=== PATIENT | female | born 1945 | race Caucasian/White ===

== ENCOUNTER 2019-09-26 11:51 | Emergency (ER) | payer MEDICARE, BC ==
--- NOTE | 2019-09-26 12:12 | ED ---
Dizziness - HPI Summary HPI Summary: 74 year old female presents to the ED by EMS with a chief complaint of vertigo MACARONI MAKER. Patient has had a history of vertigo in the past but this episode was much more intense. She had mild vertigo last night while in bed that went away quickly. Patient felt fine during breakfast this morning. After breakfast, she was doing yoga when she experienced severe vertigo which caused her to lie down , and she was unable to get up. Vertigo has not resolved. Patient reports front left headache and vomiting, as well as high blood pressure self-measured at 185 at its peak. Patient did not take any medications MACARONI MAKER. Hx of vasospasm on exertion and mild UT. No Hx DM. 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 She visited Dr. Elkins, Cardiology, 2 days ago for heart discomfort upon exertion. 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 Severity Initially: Severe Severity Currently: Severe Character: Dizzy Aggravating Factor(s): Exertion Alleviating Factor(s): Nothing Associated Signs And Symptoms: Positive: Vomiting, Inability to Walk - Allergies/Home Medications Allergies/Adverse Reactions: Allergies Allergy/AdvReac Type Severity Reaction Status Date / Time BROCCOLI AND MUSHROOMS Allergy SEVERE Uncoded 09/26/19 11:58 VOMITING ENVIRONMENTAL/SEASONAL Allergy HEADACHES, Uncoded 09/26/19 11:58 CONGESTION, WATERY EYES PMH/Surg Hx/FS Hx/Imm Hx Cardiovascular History: Reports: Hx Myocardial Infarction, Other Cardiovascular Problems/Disorders - "benign arrythmia" Respiratory History: Comment Only: Other Respiratory Problems/Disorders - recent virus GI History: Reports: Hx Gastroesophageal Reflux Disease - OCCASIONAL, Other GI Disorders - ISCHEMIC COLITIS 06/2012 Musculoskeletal History: Reports: Hx Arthritis Comment Only: Other Musculoskeletal History - OSTEOARTHRITIS LEFT ANKLE Sensory History: Reports: Hx Contacts or Glasses Denies: Hx Hearing Aid Opthamlomology History: Reports: Hx Contacts or Glasses Neurological History: Reports: Hx Migraine - Cancer History Hx Chemotherapy: No Hx Radiation Therapy: No - Surgical History Surgery Procedure, Year, and Place: 1988 LEFT BUNIONECTOMY, [facility] [place]. 1970, 1972 CSECTION, [facility] [place]. 2011 COLONOSCOPY, [facility] [place] Hx Anesthesia Reactions: No Infectious Disease History: No Infectious Disease History: Denies: Traveled Outside the [place] in Last 30 Days - Social History Alcohol Use: Daily Alcohol Amount: 1 beer Substance Use Type: Reports: None Smoking Status (MU): Never Smoked Tobacco Review of Systems Positive: Palpitations Positive: Vomiting Neurological: Negative - Dizziness Positive: Headache All Other Systems Reviewed And Are Negative: Yes Physical Exam - Summary Physical Exam Summary: Constitutional: Well-developed, Well-nourished, Alert. (-) Distressed Skin: Warm, Dry HENT: Normocephalic; Atraumatic Eyes: Conjunctiva normal. No nystagmus. Neck: Musculoskeletal ROM normal neck. (-) JVD, (-) Stridor, (-) Tracheal deviation Cardio: Rhythm regular, rate normal, Heart sounds normal; Intact distal pulses; The pedal pulses are 2+ and symmetric. Radial pulses are 2+ and symmetric. (-) Murmur Pulmonary/Chest wall: Effort normal. (-) Respiratory distress, (-) Wheezes, (-) Rales Abd: Soft. (-) Tenderness, (-) Distension, (-) Guarding, (-) Rebound Musculoskeletal: (-) Edema Lymph: (-) Cervical adenopathy Neuro: Alert, Oriented x3, Strength normal, Cranial nerves II-XII are grossly intact. (-) Dysmetria, (-) Nystagmus, (-) Ataxia by finger to nose testing, (-) Sensory deficit. Psych: Mood and affect Normal Triage Information Reviewed: Yes Vital Signs On Initial Exam: Initial Vitals Temp Pulse Resp BP Pulse Ox 97.5 F 79 19 185/118 97 09/26/19 11:52 09/26/19 11:52 09/26/19 11:52 09/26/19 11:52 09/26/19 11:52 Vital Signs Reviewed: Yes Procedures - Sedation Patient Received Moderate/Deep Sedation with Procedure: No Diagnostics - Vital Signs Vital Signs Temp Pulse Resp BP Pulse Ox 09/26/19 11:52 97.5 F 79 19 185/118 97 - Laboratory Result Diagrams: 09/26/19 12:24 09/26/19 12:24 Lab Statement: Any lab studies that have been ordered have been reviewed, and results considered in the medical decision making process. - CT Brain CT CT Interpretation Completed By: Radiologist Summary of CT Findings: BRAIN CT IMPRESSION: NO EVIDENCE FOR GROSS ACUTE INFARCT, MASS EFFECT OR HEMORRHAGE. An ED physician has reviewed this report. - EKG No standard instances Cardiac Rate: NL EKG Rhythm: Sinus Rhythm ST Segment: Non-Specific : Normal Ectopy: None Summary of EKG Findings: An ED physician has reviewed and interpreted this EKG. Dizzy Course/Dx - Course Course Of Treatment: 74 year old female presents to the ED by EMS with a chief complaint of vertigo MACARONI MAKER. Patient has had a history of vertigo in the past but this episode was much more intense. She had mild vertigo last night while in bed that went away quickly. Patient felt fine during breakfast this morning. After breakfast, she was doing yoga when she experienced severe vertigo which caused her to lie down, and she was unable to get up. Vertigo has not resolved. Patient reports front left headache and vomiting, as well as high blood pressure self-measured at 185 at its peak. Patient did not take any medications MACARONI MAKER. Hx of vasospasm on exertion and mild UT. No Hx DM. 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 She visited Dr. Elkins, Cardiology, 2 days ago for heart discomfort upon exertion. Normal exam, no nystagmus. BRAIN CT IMPRESSION: NO EVIDENCE FOR GROSS ACUTE INFARCT, MASS EFFECT OR HEMORRHAGE. Normal sinus rhythm on EKG. Lab results show a BUN/creatinine ratio of 21.8. During ED course patient was given diazepam, ketorolac, meclizine, ondansetron, and fluids. Diagnosis is gastroenteritis. Patient is feeling better and will be discharged home, follow up with PCP within 3 days. Patient was told to return to the ED for new or worsened symptoms. Pt understands and agrees with this plan. - Diagnoses Provider Diagnoses: Vertigo Discharge ED - Sign-Out/Discharge Documenting (check all that apply): Patient Departure - discharge - Discharge Plan Condition: Stable Disposition: HOME Patient Education Materials: Vertigo (ED) Referrals: Micah Tillman MD [Primary Care Provider] - Additional Instructions: Follow up with your primary care provider within 3 days. Return to the Emergency Department if symptoms change or worsen. - Attestation Statements Document Initiated by Scribe: Yes Documenting Scribe: Martin Clark Provider For Whom Scribe is Documenting (Include Credential): Zeke Mota, Scribe Attestation: Martin Evans, scribed for Zeke Mota, DO on 09/26/19 at 1538. Status of Scribe Document: Ready
[2019-09-26] MEDS ORDERED: Meclizine TAB* 12.5 MG PO ONE (12:18)
[2019-09-26] MEDS ORDERED: NS 0.9% 500 ML* 500 ML IV ONE (12:18)
[2019-09-26 12:33] LABS: ABS Basophils 0.1 10^3/ul (0-0.2); ABS Eosinophils 0.1 10^3/ul (0-0.6); ABS Lymphocytes 1.1 10^3/ul (1.0-4.8); ABS Monocytes 0.5 10^3/ul (0-0.8); ABS Neutrophils 6.1 10^3/ul (1.5-7.7); Eosinophil % 1.3 %; Hematocrit 42 % (35-47); Hemoglobin 14.3 g/dL (12.0-16.0); Lymphocyte % 13.6 %; Mean Corpuscular HGB Conc 34 g/dL (31-36); Mean Corpuscular Hemoglobin 31 pg (27-31); Mean Corpuscular Volume 92 fL (80-97); Platelet Count 291 10^3/uL (150-450); Red Blood Count 4.55 10^6 /uL (3.70-4.87); Red Cell Distribution Width 14 % (10-15); White Blood Count 7.8 10^3/uL (3.5-10.8)
[2019-09-26] MEDS ORDERED: Ondansetron INJ* 2 MG/ML VIAL IV ONE (12:49)
[2019-09-26 12:50] LABS: Albumin 4.1 g/dL (3.2-5.2); Albumin/Globulin Ratio 1.6 (1-3); BUN/Creatinine Ratio 21.8 (8-20); Calcium 9.8 mg/dL (8.6-10.3); EGFR African American 76.8 (>60); EGFR Non-African American 63.5 (>60); Globulin 2.6 g/dL (2-4); Potassium 3.6 mmol/L (3.5-5.0); Total Bilirubin 0.5 mg/dL (0.2-1.0); Total Protein 6.7 g/dL (6.4-8.9)
[2019-09-26] MEDS ORDERED: Diazepam TAB(*) 5 MG PO ONE (13:05)
[2019-09-26] MEDS ORDERED: Ketorolac INJ* 30 MG/ML 1 ML VIAL IV PUSH ONE (14:03)
[2019-09-26 15:55] VITALS: BP 131/88
== END 2019-09-26 15:54 | disposition home or self-care (01) ==
LOC: ED 11:51
DX: R42 Dizziness and giddiness (principal); I25.2 Old myocardial infarction; K21.9 Gastro-esophageal reflux disease without esophagitis
CPT/HCPCS: 36415; 70450; 80053; 84484; 85025; 93005; 96361; 96374; 96375; 99283; A9270-GY; J1885; J2405